=== PATIENT | male | born 2005 | race Caucasian/White ===

== ENCOUNTER 2025-05-20 12:23 | Emergency (ER) | payer BC, SELFPAY ==
[2025-05-20 12:41] VITALS: BP 120/77; PULSE 71; TEMP 36.6; O2SAT 99
[2025-05-20 12:45] VITALS: BP 120/77; PULSE 71; TEMP 36.6; O2SAT 99
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
[2025-05-20 13:15] LABS: Glucose Negative (Negative)
[2025-05-20 13:23] LABS: C & S Indicated? No; WBC 0-2 HPF (0-5)
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
[2025-05-20 16:35] VITALS: BP 125/72; PULSE 63; RESP 16; TEMP 36.6; O2SAT 99
== END 2025-05-20 16:53 | disposition home or self-care (01) ==
PROVIDERS: Emergency Medicine; Emergency Provider Registered Nurse Emergency
DX: S39.848A Other specified injuries of external genitals, initial encounter (principal); V18.0XXA Pedal cycle driver injured in noncollision transport accident in nontraffic accident, initial encounter
CPT/HCPCS: 99284; 99283; 76870; 81003; 81015